=== PATIENT | female | born 2000 | race Caucasian/White ===

== ENCOUNTER 2018-05-30 21:34 | Emergency (ER) | payer BC ==
--- NOTE | 2018-05-30 21:46 | UC ---
Throat Pain/Nasal Jamaal HPI - HPI Summary HPI Summary: The patient is 17-year-old female with a 1-2 day history of progressively worsening sore throat and swollen glands. She denies any fever. She does have a mild headache. She denies any myalgias. - History of Current Complaint Stated Complaint: THROAT Time Seen by Provider: 05/30/18 21:45 Hx Obtained From: Patient Onset/Duration: Gradual Onset, Lasting Days Severity: Moderate Pain Intensity: 6 Pain Scale Used: 0-10 Numeric Cough: None Associated Signs & Symptoms: Positive: Negative Related History: Prior ENT Surgery - Bilateral PETs - Epiglottits Risk Factors Epiglottis Risk Factors: Negative - Allergies/Home Medications Allergies/Adverse Reactions: Allergies Allergy/AdvReac Type Severity Reaction Status Date / Time clindamycin Allergy Diarrhea Verified 05/30/18 21:55 Home Medications: Home Medications Albuterol inh POWDER (NF) [Proair Respiclick] 1 puff INH DAILY 05/30/18 [ History Confirmed 05/30/18] Beclomethasone 40 MCG MDI(NF) [Qvar 40 MCG MDI(NF)] 2 puff INH BID 05/30/18 [ History Confirmed 05/30/18] Ethinyl Estradiol/Drospirenone [Gianvi 3 mg-0.02 mg Tablet] 1 each PO DAILY [History Confirmed 05/30/18] Levocetirizine Dihydrochloride [Xyzal] 5 mg PO DAILY 05/30/18 [History Confirmed 05/30/18] Melatonin/Pyridoxine [Melatonin 5 mg Tablet] 1 each PO BEDTIME 05/30/18 [ History Confirmed 05/30/18] Montelukast Sodium TAB* [Singulair TAB*] 10 mg PO DAILY 05/30/18 [History Confirmed 05/30/18] PMH/Surg Hx/FS Hx/Imm Hx Previously Healthy: Yes - Family History Known Family History: Positive: Hypertension, Diabetes Review of Systems All Other Systems Reviewed And Are Negative: Yes Constitutional: Positive: Negative Skin: Positive: Negative Eyes: Positive: Negative ENT: Positive: Sore Throat Respiratory: Positive: Negative Cardiovascular: Positive: Negative Gastrointestinal: Positive: Negative Genitourinary: Positive: Negative Motor: Positive: Negative Neurovascular: Positive: Negative Musculoskeletal: Positive: Negative Neurological: Positive: Negative Psychological: Positive: Negative Physical Exam Triage Information Reviewed: Yes Appearance: Well-Appearing, No Pain Distress, Well-Nourished Eyes: Positive: Conjunctiva Clear ENT: Positive: Hearing grossly normal, Tonsillar swelling, Uvula midline. Negative: Nasal congestion, Nasal drainage, Tonsillar exudate, Trismus, Muffled voice, Hoarse voice, Sinus tenderness Neck: Positive: Supple, Nontender, Enlarged Nodes @ - ant cervical Respiratory: Positive: Lungs clear, Normal breath sounds Cardiovascular: Positive: RRR, No Murmur Musculoskeletal: Positive: ROM Intact, No Edema Neurological: Positive: Alert Psychological Exam: Normal Skin Exam: Normal Diagnostics - Laboratory Diagnostic Studies Completed/Ordered: strep (-) Throat Pain/Nasal Course/Dx - Differential Dx/Diagnosis Provider Diagnosis: Tonsillitis Discharge - Sign-Out/Discharge Documenting (check all that apply): Patient Departure All imaging exams completed and their final reports reviewed: Yes - Discharge Plan Condition: Stable Disposition: HOME Patient Education Materials: Tonsillitis (ED) Referrals: MANUEL Reynolds [Primary Care Provider] - 4 Days (if not better) Additional Instructions: rest fluids tylenol or advil - Billing Disposition and Condition Condition: STABLE Disposition: Home
--- OUTSIDE RECORDS SUMMARY | 2018-05-30 21:48 | XMS REPORT | Continuity of Care Document ---
:2000 External Reference #:[id number] Author Name Leslee Jovel Care Team Providers Name Role Phone Tuan Armstrong MD Care Team Information Potash Flaker Unavailable Neno Damon MD Primary Care Physician Unavailable Payers Type Date Identification Numbers Payment Provider Subscriber Policy Number: [id number] [facility] Elvis Britt PayID: [id number] [address] [place] [address] Advance Directives Description No Information Available Problems Description No Information Family History Date Family Member(s) Problem(s) Comments Father 66 Father Diabetes Mother 61 Mother Hypercholesterolemia Social History Type Date Description Comments Sex Unknown Tobacco Use Start: Unknown Never Smoked Cigarettes ETOH Use Never used alcohol Recreational Drug Use Never Used Drugs Allergies, Adverse Reactions, Alerts Date Description Reaction Status Severity Comments 11/25/2017 Clindamycin c-diff and pain in gut Active Moderate Medications Medication Date Status Form Strength Qnty SIG Indications Ordering Provider Percocet Active Tablets 5-325mg 20tabs 1-2 by Rodriguez, 018 mouth four Christian, times a M.D. day as needed for pain Melatonin Active Capsules Unknown 000 Singulair 0 Active 1 by mouth Unknown 000 every day Xyzal Allergy 0 Active Tablets 1 by mouth Unknown 24HR 000 every day Qvar 0 Active Aerosol inhale 1 Unknown 000 puff by mouth twice daily Proair HFA Active Aerosol 108(90Base) 2puffs Unknown 000 mcg/Act four times a day as needed for sob Gianvi 0 Active Tablets 3-0.02mg take 1 Unknown 000 tablet by mouth daily as directed Immunizations Description No Information Available Vital Signs Date Vital Result Comment 05/01/2018 9:38am Weight 148.00 lb Height 66 inches 5'6" BMI (Body Mass Index) 23.9 kg/m2 BP Systolic 117 mmHg BP Diastolic 74 mmHg Heart Rate 75 /min O2 % BldC Oximetry 98 % Body Temperature 97.7 F Pain Level 5 01/05/2018 4:01pm Weight 153.00 lb Height 66 inches 5'6" BMI (Body Mass Index) 24.7 kg/m2 BP Systolic 126 mmHg BP Diastolic 83 mmHg Heart Rate 58 /min O2 % BldC Oximetry 98 % Body Temperature 98.7 F Pain Level 0 11/25/2017 4:22pm Weight 153.00 lb Height 66 inches 5'6" BMI (Body Mass Index) 24.7 kg/m2 BP Systolic 116 mmHg BP Diastolic 77 mmHg Heart Rate 73 /min O2 % BldC Oximetry 99 % Body Temperature 98.8 F Pain Level 3 both ears and sinuses Results Description No Information Available Procedures Date Code Description Status 04/21/2018 37901 Tympanostomy, Gen. Anesth. Completed 04/21/2018 73992 Stereotactic Computer-Assisted, Cranial, Extradural Completed 04/21/2018 27475 Nasal/Sinus Endosc.W.Max.Antrost. Completed 04/21/2018 27211 Nasal/Sinus Endosc.Surg.W.Ethmoid Completed 04/21/2018 46543 Septoplasty Completed 04/21/2018 23014 Submucous Resect.Turb.Par Or Comp Completed 04/21/2018 92026 Anesthesia, Nose & Accessory Sinus Surgery Not Otherwise Completed Spec 11/25/2017 52345 Fiberoptic Laryngoscopy,Diag. Completed Encounters Type Date Location Provider Dx Diagnosis Office Visit 01/05/2018 Main Office Christian Rodriguez M.D. J32.9 Chronic sinusitis, 3:45p unspecified J34.2 Deviated nasal septum J31.0 Chronic rhinitis J34.3 Hypertrophy of nasal turbinates Office Visit 11/25/2017 4:15p Main Office Christian Rodriguez M.D. J31.0 Chronic rhinitis R06.02 Shortness of breath H93.13 Tinnitus, bilateral Plan of Treatment No Information Available
--- OUTSIDE RECORDS SUMMARY | 2018-05-30 21:48 | XMS REPORT | Continuity of Care Document ---
:1998 External Reference #:[id number] Author Name Tuan Armstrong MD Address [address] [place] [address] Care Team Providers Name Role Phone Kristen Ramires MD Care Team Information Documentation Spec Unavailable Payers Type Date Identification Numbers Payment Provider Subscriber Policy Number: [id number] [facility] Elvis Britt PayID: [id number] [address] [place] [address] Advance Directives Description No Information Available Problems Date Description Provider Status Onset: 05/24/2003 Worried well Active Onset: 01/12/2018 Human immunodeficiency virus counseling Armida Burns CNM Active Onset: 01/05/2018 Venereal disease screening Armida Burns CNM Active Onset: 01/05/2018 Gynecologic examination Armida Burns CNM Active Family History Date Family Member(s) Problem(s) Comments General Heart Attack General Hypertension General Stroke Father Diabetes Mother Hypercholesterolemia Mother Skin Cancer Grandfather Hypertension Grandfather Cancer Grandmother Hypertension Grandmother Stroke Social History Type Date Description Comments Sex Unknown Marital Status Single Home Environment Lives With Parents 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 Tobacco Use Start: Unknown Never Smoked Cigarettes Smoking Status Reviewed: 05/27/18 Never Smoked Cigarettes ETOH Use Denies alcohol use Tobacco Use Start: Unknown Patient has never smoked Recreational Drug Use Denies Drug Use Exercise Type/Frequency Exercises sporadically Contraceptive Methods Current methods include Khalida Age 1st [place] 16 Years Old # Partners in a Lifetime 1 STD's No STD History Allergies, Adverse Reactions, Alerts Date Description Reaction Status Severity Comments 10/14/2017 Clindamycin Active 10/14/2017 Dogs Active 10/14/2017 Feathers Active 10/14/2017 Grass Active Medications Medication Date Status Form Strength Qnty SIG Indications Ordering Provider Peak Air Peak 01/06 Active Device please Patti, Flow Meter /2018 provide 1 MD Tuan Adult/Pediatric peak flow meter. Diagnosis: Asthma Montelukast Active Tablets 10mg 1 by mouth Unknown Sodium /0000 every day Qvar Active Aerosol 80mcg/Act take 2 Unknown /0000 puff twice daily Proair HFA Active Aerosol 108(90Bas take 2 Unknown /0000 e) puffs mcg/Act every 6 hours as needed for shortness of breath. Gianvi Active Tablets 3-0.02mg 28tab take 1 [place], /0000 s tablet by CORDELL Huffman mouth every day Levocetirizine Active Tablets 5mg Take 1 Unknown Dihydrochloride /0000 tablet a day. Melatonin ER Active Tablets ER 3mg 1tabs by Unknown /0000 mouth every night at bedtime Nasonex Active Suspension 50mcg/Act two sprays Unknown /0000 in each nostril two times a day Singulair Hx Tablets 10mg 1 by mouth Unknown /0000 every day - 10/14 Qnasl Hx Aerosol 80mcg/Act as needed Unknown /0000 Immunizations Description No Information Available Vital Signs Date Vital Result Comment 05/27/2018 1:52pm BP Systolic Sitting Left Arm 106 mmHg BP Diastolic Sitting Left Arm 72 mmHg Heart Rate 61 /min Respiratory Rate 18 /min Height 65 inches 5'5" Weight 155.00 lb BMI (Body Mass Index) 25.8 kg/m2 BSA (Body Surface Area) 1.78 m2 [place] body weight in kilograms 57 kg Height Percentile 61 % Weight Percentile 85th O2 % BldC Oximetry 99 % Ora 01/12/2018 10:03am BP Systolic 116 mmHg BP Diastolic 74 mmHg Body Temperature 97.7 F Heart Rate 6416 /min Height 65 inches 5'5" Weight 151.00 lb BMI (Body Mass Index) 25.1 kg/m2 BSA (Body Surface Area) 1.76 m2 [place] body weight in kilograms 57 kg Height Percentile 61 % Weight Percentile 82nd 01/06/2018 1:45pm BP Systolic Sitting Left Arm 106 mmHg BP Diastolic Sitting Left Arm 60 mmHg Heart Rate 59 /min Respiratory Rate 18 /min Height 65 inches 5'5" Weight 153.00 lb BMI (Body Mass Index) 25.5 kg/m2 BSA (Body Surface Area) 1.77 m2 [place] body weight in kilograms 57 kg Height Percentile 61 % Weight Percentile 84th O2 % BldC Oximetry 97 % Room air 01/05/2018 9:44am BP Systolic 118 mmHg BP Diastolic 70 mmHg Body Temperature 97.7 F Heart Rate 90 /min Respiratory Rate 16 /min Height 65 inches 5'5" Weight 154.25 lb BMI (Body Mass Index) 25.7 kg/m2 BSA (Body Surface Area) 1.77 m2 [place] body weight in kilograms 57 kg Height Percentile 61 % Weight Percentile 85th O2 % BldC Oximetry 98 % 10/14/2017 12:09pm BP Systolic Sitting Left Arm 122 mmHg BP Diastolic Sitting Left Arm 78 mmHg Heart Rate 88 /min Respiratory Rate 16 /min Weight 164.00 lb Weight Percentile 90th O2 % BldC Oximetry 97 % room air Results Test Date Facility Test Result H/L Range Note HIV Screen 4TH [facility] HIV Screen 4th Non Reactive Non Reactive 1, 2 Gen Reflex [address] [place] [place] [address] [phone] Laboratory test [facility] Hepatitis B Negative Negative finding [address] [place] [address] [phone] Chlmaydia/GC/Tr [facility] Trichomonas Negative Negative ichomonas PCR [address] vaginalis PCR [place], [place] [id number] [phone] Chlamydia trachomatis, PCR Negative Negative Neisseria gonorrhoeae, PCR Negative Negative 3 Genital Culture W/ 01/05/2018 [facility] Gram Stain GRAM STAIN INDIC [address] <SEE NOTE> [place] [address] [phone] Gram Stain MANY GR POS. JAC <SEE NOTE> 5 Gram Stain FEW GRAM VARIABL <SEE NOTE> 6 Gram Stain RARE WHITE BLOOD <SEE NOTE> 7 Genital Culture GENITAL VICKI Laboratory test 01/05/2018 [facility] Hepatitis C < 0.1 0.0-0.[address] Antibody s/[place] [address] [phone] Treponema Antibody [place] Negative Negative CBS W/Automated Diff 10/14/2017 [facility] White Blood 5.6 K/uL N 3.1-10.[address] [place] [address] [phone] Red Blood Count 4.98 M/uL N 3.90-5.40 Hemoglobin 14.9 gm/dL N 11.6-15.8 Hematocrit 43.0 % N 36.0-46.1 Mean Cell Volume 86.3 fl N 80.9-99.0 Mean Corpuscular HGB 29.9 pg N 25.9-32.7 Mean Corpuscular HGB Conc 34.7 g/dL High 30.8-34.3 Platelet Count 256 K/uL N 155-360 Red Cell Distri Width SD 38.9 fl N 3-47 Red Cell Distri Width %CV 12.7 % N 11.7-14.4 Mean Platelet Volume 10.5 fL N 8.9-12.4 Neut% 55.3 % N 28.0-68.0 Lymph % 33.7 % N 20.0-42.0 [place] % 8.3 % N 4.3-13.2 Eo% 2.5 % N 0.0-6.6 Bas% 0.2 % N 0.0-1.1 Neut# 3.07 K/uL N 1.8-7.0 Lymph # 1.87 K/uL N 1.0-4.0 [place] # 0.46 K/uL N 0.3-0.9 Eos # 0.14 K/uL N 0.0-0.5 Baso # 0.01 K/uL N 0.0-0.1 Comprehensive Metabolic 10/14/2017 [facility] Glucose 93 mg/dL N 74-[address] [place] [address] [phone] BUN 11 mg/dL N 7-18 Creatinine 1.0 mg/dL N 0.6-1.3 Glom Filtration Rate, Estimate >60 mL/min >60 If >60 mL/min >60 10 BUN/Creat 11.0 ratio Sodium 140 mmol/L N 136-145 Potassium 4.0 mmol/L N 3.5-5.1 Chloride 105 mmol/L N 98-107 Carbon Dioxide 25 mmol/L N 21-32 Anion Gap 10 mEq/L N 8-16 Calcium 9.8 mg/dL N 8.5-10.1 Total Protein 7.8 g/dL N 6.4-8.2 Albumin 3.7 g/dL N 3.4-5.0 Globulin 4.1 g/dL N 1.9-4.3 Alb/Glob 0.9 ratio Bilirubin,Total 0.3 mg/dL N 0.2-1.0 Sgot/Ast 16 U/L N 15-37 SGPT/Alt 28 U/L N 12-78 Alkaline Phosphatase 51 U/L N 45-117 Laboratory test 10/14/2017 [facility] Immunoglobulin 11 IU/mL 0-100 11 finding [address] [place] [address] [phone] 1 Z11.3 2 Performed at: [address] [id number] Chipper Operator: Mariza Stapleton MD, Phone: [phone] A negative result for either C. trachomatis and/or N. gonorrhoeae does not preclued an infection because results are dependent on adequate specimen collection, absence of inhibitors, and sufficient DNA to be detected. 4 GRAM STAIN INDICATES NORMAL GENITAL VICKI 5 MANY GR POS. BACILLI SUGGESTIVE OF LACTOBACILLUS SP. 6 FEW GRAM VARIABLE COCCOBACILLI 7 RARE WHITE BLOOD CELLS 8 INFCE Result Units: s/co ratio Negative: < 0.8 Indeterminate: 0.8 - 0.9 Positive: > 0.9 The CDC recommends that a positive HCV antibody result be followed up with a HCV Nucleic Acid Amplification test (754256). Performed at: [address] [id number] Chipper Operator: Joni Torres MD, Phone: [phone] Performed at: [address] [id number] Chipper Operator: Mariza Stapleton MD, Phone: [phone] 9 I88.83 57 Note: Persistent reduction for 3 months or more in an eGFR <60 mL/min/1.73 m2 defines CKD. Patients with eGFR values >/=60 mL/min/1.73 m2 may also have CKD if evidence of persistent proteinuria is present. The original MDRD equation for estimated GFR is not valid for patients less than 18 years of age. Additional information may be found at www.kdoqi.org. 11 Performed at: [facility] [address] [id number] Chipper Operator: Joni Torres MD, Phone: [phone] Procedures Date Code Description Status 10/28/2017 52228 Bronchospasm Provocation Evaluation Multi Spirometric Completed Determinati 10/28/2017 79962 Spirometry Completed Encounters Type Date Location Provider Dx Diagnosis Office Visit 01/12/2018 [facility] Armida Burns, Z71.7 Human immunodeficiency 10:00a [facility] virus [HIV] counseling Office Visit 01/06/2018 Pulmonology Tuan Armstrong J45.909 Unspecified asthma, 1:45p uncomplicated J30.89 Other allergic rhinitis J32.9 Chronic sinusitis, unspecified Office Visit 10/14/2017 11:45a Pulmonology Tuan Armstrong J45.20 Mild intermittent MD asthma, uncomplicated J30.89 Other allergic rhinitis Plan of Treatment Future Appointment(s):11/25/2018 10:00 am - Kelly Young PA at [facility]/ 26/2018 - Tuan Armstrong MDJ45.20 Mild intermittent asthma, uncomplicatedComments :Doing much better. Continue Qvar and as needed albuterol. She will call me back if her symptoms worsen, will recommend restarting Singulair at that time.Follow up:6 swjcnwA72.89 Other allergic rhinitisComments:Continue Xyzal and Nasonex.J32.9 Chronic sinusitis, unspecifiedComments:Resolved.
--- OUTSIDE RECORDS SUMMARY | 2018-05-30 21:48 | XMS REPORT | Continuity of Care Document ---
:1998 External Reference #:[id number] Author Name Christian Rodriguez M.D. Address [address] [place] [address] Care Team Providers Name Role Phone Tuan Armstrong MD Care Team Information Floral Designer Unavailable Neno Damon MD Primary Care Physician Unavailable Payers Type Date Identification Numbers Payment Provider Subscriber Policy Number: [id number] [facility] Elvis Britt PayID: [id number] [address] [place] [address] Advance Directives Description No Information Available Problems [...] Percocet Active Tablets 5-325mg 20tabs 1-2 by Yang Rodriguez mouth four Christian, times a M.D. day as needed for pain Melatonin 0 Active Capsules Unknown 000 Singulair 0 Active 1 by mouth Unknown 000 every day Xyzal Allergy 0 Active Tablets 1 by mouth Unknown 24HR 000 every day Qvar 0 Active Aerosol inhale 1 Unknown 000 puff by mouth twice daily Proair HFA 0 Active Aerosol 108(90Base) 2puffs Unknown 000 mcg/Act [...] Available Procedures Date Code Description Status 04/21/2018 36820 Tympanostomy, Gen. Anesth. Completed 04/21/2018 26508 Stereotactic Computer-Assisted, Cranial, Extradural Completed 04/21/2018 56513 Nasal/Sinus Endosc.W.Max.Antrost. Completed 04/21/2018 73456 Nasal/Sinus Endosc.Surg.W.Ethmoid Completed 04/21/2018 02921 Septoplasty Completed 04/21/2018 12040 Submucous Resect.Turb.Par Or Comp Completed 04/21/2018 98221 Anesthesia, Nose & Accessory Sinus Surgery Not Otherwise Completed Spec 11/25/2017 21542 Fiberoptic Laryngoscopy,Diag. Completed Encounters Type Date Location [...]
[2018-05-30 21:55] VITALS: BP 129/75
[2018-05-30] MEDS ORDERED: Lidocaine 2% VISCOUS* 15 ML UDC PO ONE (22:20)
== END 2018-05-30 22:28 | disposition home or self-care (01) ==
LOC: UCCORT 21:34
DX: J03.90 Acute tonsillitis, unspecified (principal); Z88.1 Allergy status to other antibiotic agents
CPT/HCPCS: 87651; 99202; G0463

== ENCOUNTER 2019-05-30 10:22 | Emergency (ER) | payer BC ==
[2019-05-30 12:18] VITALS: BP 120/76
--- NOTE | 2019-05-30 12:32 | UC ---
Throat Pain/Nasal Jamaal HPI - HPI Summary HPI Summary: 18-year-old female who has had chronic sinus complaints. She has been using the Gricelda pot over the past 2 months trying to avoid antibiotics however today she has increased sinus pressure with purulent nasal coryza. She is under the care of Dr. Rodriguez and has had ear tubes in the past. She has had sinus surgery in the past and also to repair a deviated septum. She states many times she will have sinus infections for several months and does not always need an antibiotic but feels today she does. She has not been born with asthma however when she started cross-country running she started experiencing some asthma symptoms. She has had to use her nebulizer and inhaler over the past couple of days. 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 difficile in the past as a result of antibiotic use. - Surgical History Surgical History: Yes Surgery Procedure, Year, and Place: [place] teeth. Nasal surgery 2017 - Family History Known Family History: Positive: Hypertension, Diabetes - Social History Lives: With Family Alcohol Use: None Substance Use Type: None Smoking Status (MU): Never Smoked Tobacco Review of Systems All Other Systems Reviewed And Are Negative: Yes ENT: Positive: Nasal Discharge, Sinus Congestion, Sinus Pain/Tenderness Respiratory: Positive: Cough - Nonproductive cough, she has had some wheezing and has had use her inhaler and nebulizer over the past couple days. Is Patient Immunocompromised?: No Physical Exam Triage Information Reviewed: Yes Appearance: Well-Appearing, No Pain Distress, Well-Nourished Vital Signs: Initial Vital Signs Temp 98.2 F 05/30/19 12:11 Pulse 74 05/30/19 12:11 Resp 16 05/30/19 12:11 BP 120/76 05/30/19 12:11 Pulse Ox 98 05/30/19 12:11 Vital Signs Reviewed: Yes Eyes: Positive: Conjunctiva Clear ENT: Positive: Pharynx normal - Purulent yellow postnasal drainage., Nasal congestion, Nasal drainage, TMs normal, Sinus tenderness - Tender over the maxillary sinuses bilaterally., Uvula midline, Other - PE tubes appear to be in the ear canal Neck: Positive: Supple, Nontender, No Lymphadenopathy Respiratory: Positive: Lungs clear, Normal breath sounds, No respiratory distress, No accessory muscle use Cardiovascular: Positive: RRR, No Murmur, Pulses Normal, Brisk Capillary Refill Musculoskeletal Exam: Normal Neurological Exam: Normal Psychological Exam: Normal Skin Exam: Normal Throat Pain/Nasal Course/Dx - Course Course Of Treatment: Patient is comfortable here. - Differential Dx/Diagnosis Provider Diagnosis: Sinusitis, Bronchitis Discharge ED - Sign-Out/Discharge Documenting (check all that apply): Patient Departure All imaging exams completed and their final reports reviewed: No Studies - Discharge Plan Condition: Good Disposition: HOME Prescriptions: Amoxicillin/Clavulanate TAB* [Augmentin TAB 875*] 875 mg PO BID 10 Days #20 tab predniSONE [Prednisone 20 MG TAB] 40 mg PO DAILY 5 Days #10 tablet Patient Education Materials: Sinusitis (ED) Referrals: Huma Chambers MD [Primary Care Provider] - Additional Instructions: Increase fluids, take the Augmentin and prednisone with food. Definite follow- up with your primary care provider or Dr. Rodriguez to recheck the ear tubes in 5-7 days if no improvement. - Billing Disposition and Condition Condition: GOOD Disposition: Home
== END 2019-05-30 12:43 | disposition home or self-care (01) ==
LOC: UCCORT 10:22
DX: J32.9 Chronic sinusitis, unspecified (principal); J45.909 Unspecified asthma, uncomplicated; Z88.1 Allergy status to other antibiotic agents
CPT/HCPCS: 99212; G0463

== ENCOUNTER 2019-06-01 18:33 | Emergency (ER) | payer BC ==
[2019-06-01 18:44] VITALS: BP 138/58
--- NOTE | 2019-06-01 18:49 | UC ---
UC General HPI - HPI Summary HPI Summary: Pt here for c diff concern. Was seen here 05/30/19 and tx sinusitis and rx augmentin. Today noon pt had diarrhea and another episode at 1500 and 1800. Also c/o stomach cramps. Hx of IBS. patients sinus symptoms persist, but no fever. she is complaining of sore throat - History of Current Complaint Chief Complaint: UCGI Stated Complaint: BOWEL CONCERN Time Seen by Provider: 06/01/19 18:38 Hx Obtained From: Patient Hx Last Menstrual Period: 05/30/19 Onset/Duration: Sudden Onset, Lasting Days Onset Severity: Mild Current Severity: Mild Pain Intensity: 2 Associated Signs & Symptoms: Positive: Diarrhea - Allergy/Home Medications Allergies/Adverse Reactions: Allergies Allergy/AdvReac Type Severity Reaction Status Date / Time clindamycin Allergy Diarrhea Verified 06/01/19 18:38 PMH/Surg Hx/FS Hx/Imm Hx Previously Healthy: Yes - Surgical History Surgical History: Yes Surgery Procedure, Year, and Place: [place] teeth. Nasal surgery 2017 - Family History Known Family History: Positive: Hypertension, Diabetes - Social History Alcohol Use: None Substance Use Type: None Smoking Status (MU): Never Smoked Tobacco Review of Systems All Other Systems Reviewed And Are Negative: Yes Gastrointestinal: Positive: Abdominal Pain, Diarrhea Physical Exam Triage Information Reviewed: Yes Appearance: Well-Appearing, Well-Nourished, Pain Distress Vital Signs: Initial Vital Signs Temp 98.7 F 06/01/19 18:37 Pulse 78 06/01/19 18:37 Resp 16 06/01/19 18:37 BP 138/58 06/01/19 18:37 Pulse Ox 99 06/01/19 18:37 Vital Signs Reviewed: Yes Eye Exam: Normal ENT: Positive: Pharyngeal erythema, Nasal congestion, TMs normal, Tonsillar swelling, Tonsillar exudate Neck exam: Normal Respiratory Exam: Normal Respiratory: Positive: Chest non-tender, Lungs clear, Normal breath sounds Cardiovascular Exam: Normal Cardiovascular: Positive: No Murmur Bowel Sounds: Positive: Present Musculoskeletal Exam: Normal Neurological Exam: Normal Psychological Exam: Normal Skin Exam: Normal Course/Dx - Course Course Of Treatment: hx obtained, exam performed ,meds reviewed, stool culture obtained. rapid strep obtained and is negative, stool sample sent, did prescribed flagyl in the case of a positive stool test. referral to [facility]. - Diagnoses Provider Diagnosis: Sinus congestion, Diarrhea due to drug Discharge ED - Sign-Out/Discharge Documenting (check all that apply): Patient Departure All imaging exams completed and their final reports reviewed: No Studies - Discharge Plan Condition: Stable Disposition: HOME Prescriptions: metroNIDAZOLE [Flagyl 500 MG TAB] 500 mg PO TID #21 tab Patient Education Materials: Acute Diarrhea (ED) Referrals: Huma Chambers MD [Primary Care Provider] - Christian Rodriguez MD [Medical Doctor] - Additional Instructions: 1. follow up with your ENT, Dr Rodriguez 2. VIcks, apple cider vinegar, heat, steam showers, neti pot for the sinus congestion 3. Wait for a positive stool culture before starting the flagyl. 4. stay hydrated and get plenty of rest. - Billing Disposition and Condition Condition: STABLE Disposition: Home - Attestation Statements Provider Attestation: Per institutional requirements, I have reviewed the chart, however, I was not consulted specifically or made aware of this patient by the midlevel provider. I did not personally evaluate, interact with , or disposition this patient.
== END 2019-06-01 19:35 | disposition home or self-care (01) ==
LOC: UCCORT 18:33
DX: J34.89 Other specified disorders of nose and nasal sinuses (principal); K52.1 Toxic gastroenteritis and colitis; K58.9 Irritable bowel syndrome, unspecified; Z88.1 Allergy status to other antibiotic agents
CPT/HCPCS: 87651; 99212; G0463